=== PATIENT | female | born 1950 | race Caucasian/White ===

== ENCOUNTER 2016-03-03 07:59 | Inpatient (IN) | payer OTHER ==
[~2016-03-03] VITALS: Ht 162.6 cm; Wt 112.9 kg
--- NOTE | ~2016-03-03 | EKG ---
[address] [place] [address] ELECTROCARDIOGRAM REPORT Name: COLLEEN THOMPSON Room #: PRE IN [facility]#: [id number] Admission: Attend Phys: Anatoly Mckeon MD Discharge: Date of : 54 Report #: [id number] THIS REPORT FOR: //name// [facility] Test Date: 2016-04-08 Test Time: 08:33:02 Pat Name: COLLEEN THOMPSON Department: Room: Gender: F Fresh Food Manager: JUWAN MARCIAL : 1950 Requested By: Anatoly Mckeon Order Number: [id number] MD: Elias Schafer Measurements Intervals [place] Rate: 89 P: 44 TX: 164 QRS: 27 QRSD: 96 T: 33 QT: 379 QTc: 462 Interpretive Statements Sinus rhythm Baseline wander in lead(s) III,aVF No previous ECG available for comparison Electronically Signed On 04-08-2016 9:02:49 [employer] REPA[employer] by Elias Schafer [email or web address] <ELECTRONICALLY SIGNED> By: Elias Schafer MD 04/08/16901 832 2 Elias Schafer MD /BERNARDO
--- NOTE | ~2016-03-03 | H ---
[facility] [place] [address] HISTORY AND PHYSICAL Name: COLLEEN THOMPSON Room #: 543-P ADM IN M.R.#: [id number] Admission: 04/21/16 Attend Phys: Anatoly Mckeon MD Discharge: Date of : 54 Report #: [id number] THIS REPORT FOR: //name// For History and Physical, please see office documentation/handwritten note in the patient's medical record. <ELECTRONICALLY SIGNED> By: Anatoly Mckeon MD 04/24/16 0752 1444 Anatoly Mckeon MD /
--- NOTE | ~2016-03-03 | O ---
[facility] [place] [address] OPERATIVE REPORT Name: COLLEEN THOMPSON Room #: 543-P ADM IN M.R.#: [id number] Admission: 04/21/16 Attend Phys: Anatoly Mckeon MD Discharge: Date of : 54 Report #: [id number] THIS REPORT FOR: //name// CC: Anatoly Mckeon Constance Maldonadoer DATE OF SERVICE: 04/21/2016 PREOPERATIVE DIAGNOSIS: End-stage degenerative arthritis, right knee with varus malalignment. POSTOPERATIVE DIAGNOSIS: End-stage degenerative arthritis, right knee with varus malalignment. PROCEDURE: Right total knee arthroplasty. SURGEON: Anatoly Mckeon MD. INDICATIONS: This 65-year-old female, complains of bilateral knee discomfort, worse on the right than the left. X-rays confirm rather significant 3-compartment degenerative arthritis with moderate varus malalignment. We discussed treatment options and elected to go ahead with total knee arthroplasty. DESCRIPTION OF PROCEDURE: The patient was taken to the operating room, where she was placed under general anesthesia. Prophylactic intravenous antibiotics were administered. A femoral nerve block was also applied. The right knee and leg were meticulously prepped and draped. A thigh tourniquet was inflated to 300 mmHg. An anterior longitudinal skin incision was made and carried through the medial retinaculum. The patella was reflected laterally, rather marked degenerative change in all 3 compartments was noted. [employer] knee system was utilized. Intramedullary guides were used on both the femur and the tibia. The femur was cut in 5 degrees of valgus, and the tibia cut perpendicular to long axis of the bone. The patellar surface was resected using a small patellar cutting guide. The femur seemed best suited for a size 3 femoral component. The tibia was also best suited for a size 3 tibial component, although rather minimal bone was resected from both the femur and the tibia, a 12.5 mm polyethylene insert, seemed to fit most nicely. This resulted in satisfactory alignment, range of motion, and stability. Moderate correction in the preoperative varus alignment was accomplished. The patella fit nicely with a size 32 mm patellar button, which was secured with appropriate anchor holes. The patella tracked nicely and appeared to be secure. The trial components were removed. The intramedullary canal was blocked with bone block on both the femoral and tibial sides. The surfaces were thoroughly irrigated and dried. Methyl methacrylate cement was mixed and injected into the porous surface of the tibia. The De[employer] PFC size 3 tibial component was impacted into position in [address] [address] OPERATIVE REPORT Name: COLLEEN THOMPSON Room #: 543-P [facility] IN ..#: [id number] Admission: 04/21/16 Attend Phys: Anatoly Mckeon MD Discharge: Date of : 54 Report #: [id number] appropriate alignment. It seated nicely and appeared to be secure. Excess cement was removed from around its margin. A 12.5 mm polyethylene insert was snapped into place. It also seated nicely and appeared to be secure. A press fit noncemented size 3 right femoral component was impacted on the distal femur. It seated nicely and appeared to be secure. A 32 mm patellar button was cemented into place, using appropriate anchor holes and cement. It was held with a patellar clamp until the cement had hardened. All excess cement was removed from around its margin. Once the components were stable, alignment, range of motion, and stability were once again assessed and felt to be acceptable. She demonstrated full knee extension and satisfactory correction in the preoperative varus malalignment. There was adequate stability with varus and valgus stress. The knee demonstrated flexion beyond 130 degrees. A single Hemovac was left in the wound exiting through a separate stab incision. The fascia was closed with multiple #1 Vicryl sutures. The tourniquet was then deflated after a total tourniquet time of 42 minutes. The subcutaneous tissues were once again irrigated and then closed using 0 Monocryl. The skin was closed with skin abel. A sterile dressing was applied. The patient was awakened and returned to the recovery room in good condition. <ELECTRONICALLY SIGNED> By: Anatoly Mckeon MD 04/22/16 0816 0911 1235 Anatoly Mckeon MD /nt
--- NOTE | ~2016-03-03 | D ---
[facility] [place] [address] [place] [address] DISCHARGE SUMMARY Name: COLLEEN THOMPSON Room #: 543-P [facility] IN M.R.#: [id number] Admission: 04/21/16 Attend Phys: Anatoly Mckeon MD Discharge: 04/25/16 Date of : 54 Report #: [id number] THIS REPORT FOR: //name// CC: Anatoly Julian DATE OF SERVICE: 04/25/2016 DISCHARGE DIAGNOSIS: End-stage degenerative arthritis, right knee. OPERATIVE PROCEDURE: Right total knee arthroplasty. HISTORY OF PRESENT ILLNESS: This 66-year-old female has progressive right knee pain. She has progressive discomfort despite conservative measures. She is using a cane for ambulation and having progressive difficulty. She has elected to go ahead with right total knee arthroplasty. HOSPITAL COURSE: The patient was admitted and taken to the operating room on 04/21/2016. She underwent right total knee arthroplasty, which she tolerated well. Postoperatively, her course was largely unremarkable. She was able to gradually advance with physical therapy and resume regular diet. She was placed on Xarelto for anticoagulation. She made slow progress and was gradually able to advance to stairs and independent ambulation. She was felt to be ready for discharge on 04/25/2016. DISCHARGE MEDICATIONS: Include triamterene/hydrochlorothiazide one tablet daily, Xarelto 10 mg daily, hydrocodone 10/325 one q. 4-6 hours p.r.n. for pain. She will continue with home therapy and we will plan to see her back in my office in about 2 weeks postoperatively. <ELECTRONICALLY SIGNED> By: Anatoly Mckeon MD 05/25/16 1145 0836 0953 Anatoly Mckeon MD /nt
--- NOTE | ~2016-03-03 | HC ---
[facility] [place] [address] [place] [address] CONSULTATION Name: COLLEEN THOMPSON Room #: 543-P [facility] IN M.R.#: [id number] Admission: 04/21/16 Attend Phys: Anatoly Mckeon MD Discharge: 04/25/16 Date of : 54 Report #: [id number] THIS REPORT FOR: //name// CC: Anatoly Julian MD DATE OF SERVICE: 04/21/2016 PRIMARY CARE PHYSICIAN: Constance Julian M.D. CONSULTING PHYSICIAN: Anatoly Mckeon M.D. CHIEF COMPLAINT: Medical management. HISTORY OF PRESENT ILLNESS: The patient is a 65-year-old female with a history of hypertension and degenerative joint disease, who is status post right total knee replacement, needing medical management. She currently denies any chest pain or shortness of breath. She is still very sedated from her anesthesia, but denies any significant postoperative pain. PAST MEDICAL HISTORY: Hypertension, depression, GERD and cataracts. PAST SURGICAL HISTORY: She had a hysterectomy, right total knee arthroplasty as above, laparoscopic cholecystectomy, left bunionectomy, tonsillectomy, colonoscopy, bilateral cataract surgery, right hand surgery and left knee scope. HOME MEDICATIONS: Vitamin D at 1000 units daily, Voltaren 75 mg b.i.d., Nexium 40 mg daily, Mucinex 600 b.i.d., losartan 25 daily, multivitamin daily, Lovaza 1 mg b.i.d., potassium chloride 10 mEq daily, Zoloft 100 daily, antacids p.r.n., triamterene/hydrochlorothiazide 75/50 one daily and Ambien 10 at bedtime p.r.n. FAMILY HISTORY: Reviewed and it is noncontributory. REVIEW OF SYSTEMS: Difficult to obtain as she is very sleepy. SOCIAL HISTORY: She does not smoke or drink. Lives with her locally. PHYSICAL EXAMINATION: VITAL SIGNS: Temperature of 99, pulse 78, blood pressure 146/69 and O2 sats 98% on 2 liters. GENERAL: She is sleepy, but arousable, follows commands and answers questions appropriately. HEENT: Normocephalic, atraumatic. Pupils equal. NECK: Supple. [facility] [address] [place] [address] CONSULTATION Name: COLLEEN THOMPSON Room #: 543-[facility] IN M.R.#: [id number] Admission: 04/21/16 Attend Phys: Anatoly Mckeon MD Discharge: 04/25/16 Date of : 54 Report #: [id number] CARDIOVASCULAR: Regular rate and rhythm. No murmurs. LUNGS: Clear to auscultation bilaterally. No crackles or wheezes. ABDOMEN: Soft. No distention or tenderness. EXTREMITIES: Right knee dressing is clean, dry and intact. NEUROLOGIC: Nonfocal. ASSESSMENT: 1. Status post right total knee arthroplasty. 2. Hypertension. 3. Gastroesophageal reflux disease. 4. Depression. PLAN: 1. Continue postop care per ortho, including pain management and DVT prophylaxis. 2. Resume all home meds with holding parameters. 3. Repeat labs in the morning. 4. DVT prophylaxis per ortho. Thank you for allowing us to participate in this consult. We will follow with you. <ELECTRONICALLY SIGNED> By: Marcy Appiah MD 05/13/162009 1809 2312 Marcy Appiah MD /nt
[~2016-03-03 07:59] MED LIST: AMBIEN 10 MG TA10 MG PO; AMLODIPINE BESYL5 MG; CARBAMAZEPINE400 M1; LOSARTAN POTASS25 MG PO; LOVAZA1000 MG PO; LUMIGAN2.5 M1; MULTIVITAMINS; NEXIUM 40 MG CA40 M1; NORCO 5-325 TA1 EACH PO; POTASSIUM CHLO10 ME1 PO; SERTRALINE HCL100 MG PO; TRIAMTERENE-HC1 EAC3 PO; VITAMIN D 5050000 I1
[2016-04-03] MEDS ORDERED: VITAMIN D1000 UNI1 PO (12:56)
[2016-04-03] MEDS ORDERED: ANTACID325 MG PO (12:58)
[2016-04-03] MEDS ORDERED: DICLOFENAC SODI75 MG PO (12:58)
[2016-04-03] MEDS ORDERED: NEXIUM40 MG PO (12:59)
[2016-04-03] MEDS ORDERED: MUCINEX TA600 MG/TA2 PO (13:30)
[2016-04-08 09:12] LABS: HEMATOCRIT 33.6 % (37.0-47.0); MCH 23.6 pg (26.0-34.0); MCHC 32.8 % (28.0-37.0); MCV 71.9 fL (80.0-100.0); RBC 4.67 mil/uL (4.20-5.00); RDW 15.2 % (10.5-14.5); WBC 9.2 thou/uL (4.0-11.0)
[2016-04-08 09:24] LABS: ALBUMIN 3.6 g/dL (3.4-5.0); CALCIUM 9.6 mg/dL (8.5-10.1); CREATININE 1.7 mg/dL (0.6-1.3); POTASSIUM 3.7 mmol/L (3.5-5.1)
[2016-04-08 09:25] LABS: PROTIME 10.2 Seconds (9.3-11.4)
[2016-04-08 09:31] LABS: URINE BILIRUBIN NEGATIVE (Negative); URINE BLOOD NEGATIVE (Negative); URINE COLOR YELLOW; URINE GLUCOSE-RANDOM* NEGATIVE (Negative); URINE KETONES NEGATIVE (Negative); URINE LEUKOCYTES-REFLEX 1+ (Negative); URINE PROTEIN (DIPSTICK) NEGATIVE (Negative); URINE UROBILINOGEN 0.2 E.U./dl (0.2-1.0)
[2016-04-08 09:49] LABS: CASTS None Seen /LPF (None Seen); SQUAMOUS 0-3 Few /LPF (0-3)
[2016-04-08 09:50] LABS: CRYSTALS None Seen /LPF (None Seen); URINE RBC 0-2 Rare /HPF (0-2); URINE WBC-REFLEX 6-15 Few /HPF (0-5); WBC CLUMPS Few (None Seen)
[2016-04-21] VITALS (10 sets, daily range): BP systolic 98–146; BP diastolic 48–81
[2016-04-22 03:33] VITALS: BP 111/68
[2016-04-22 06:00] LABS: HEMATOCRIT 29.2 % (37.0-47.0); HEMOGLOBIN 9.3 gm/dL (12.0-15.0); MCH 23.3 pg (26.0-34.0); MCHC 31.9 % (28.0-37.0); MCV 73.2 fL (80.0-100.0); RDW 15.6 % (10.5-14.5); WBC 10.3 thou/uL (4.0-11.0)
[2016-04-22 06:42] LABS: CALCIUM 8.8 mg/dL (8.5-10.1); CREATININE 1.3 mg/dL (0.6-1.3); POTASSIUM 3.7 mmol/L (3.5-5.1)
[2016-04-22 07:45] VITALS: BP 122/61
[2016-04-22 15:25] VITALS: BP 131/57
[2016-04-22 20:15] VITALS: BP 118/53
[2016-04-23] VITALS (7 sets, daily range): BP systolic 101–135; BP diastolic 57–64
[2016-04-23 03:49] LABS: HEMATOCRIT 28.5 % (37.0-47.0); MCH 23.7 pg (26.0-34.0); MCHC 31.5 % (28.0-37.0); MCV 75.1 fL (80.0-100.0); RBC 3.79 mil/uL (4.20-5.00); RDW 15.8 % (10.5-14.5); WBC 8.5 thou/uL (4.0-11.0)
[2016-04-24 03:51] LABS: HEMATOCRIT 28.8 % (37.0-47.0); HEMOGLOBIN 8.9 gm/dL (12.0-15.0); MCH 23.4 pg (26.0-34.0); MCV 75.7 fL (80.0-100.0); RBC 3.81 mil/uL (4.20-5.00); RDW 15.6 % (10.5-14.5); WBC 7.7 thou/uL (4.0-11.0)
[2016-04-24 03:59] VITALS: BP 120/61
[2016-04-24 10:33] VITALS: BP 106/62
[2016-04-24 20:27] VITALS: BP 127/57
[2016-04-25 03:34] VITALS: BP 133/69
[2016-04-25 08:47] VITALS: BP 129/78
== END 2016-04-25 13:06 | disposition home health service (06) | DRG 470 ==
LOC: PRE 07:59 → TBA 04-21 05:14 → 5S 04-21 05:14 → PRE 04-21 06:19 → 5S 04-21 12:18 → PRE 04-21 13:26 → 5S 04-25 13:06
PROVIDERS: Family Medicine; Orthopaedic Surgery
PROC: 0SRC0J9 Replacement of Right Knee Joint with Synthetic Substitute, Cemented, Open Approach (ICD-10-PCS; principal; 2016-04-21)
DX: M17.11 Unilateral primary osteoarthritis, right knee (principal); Z68.41 Body mass index [BMI] 40.0-44.9, adult; F32.9 Major depressive disorder, single episode, unspecified; E66.9 Obesity, unspecified; K21.9 Gastro-esophageal reflux disease without esophagitis; I10 Essential (primary) hypertension; M22.41 Chondromalacia patellae, right knee; F41.9 Anxiety disorder, unspecified; Z90.710 Acquired absence of both cervix and uterus; Z98.42 Cataract extraction status, left eye; Z98.41 Cataract extraction status, right eye; Z82.61 Family history of arthritis
CPT/HCPCS: 10785; 50010; 50101; 50415; 50612; 50954; 51130; 51225; 51412; 51771; 53000; 53364; 56525; 62110; 62900; 70005

== ENCOUNTER → 2018-04-13 | Outpatient (CLI) | payer OTHER ==
[~2018-04-13] MED LIST changes: +ANTACID325 MG PO; +DICLOFENAC SODI75 MG PO; +MUCINEX TA600 MG/TA2 PO; +NEXIUM40 MG PO; +VITAMIN D1000 UNI1 PO
== END ==
LOC: MRI 07:24
DX: M51.36 Other intervertebral disc degeneration, lumbar region (principal); M48.061 Spinal stenosis, lumbar region without neurogenic claudication; M43.16 Spondylolisthesis, lumbar region; M51.26 Other intervertebral disc displacement, lumbar region; R20.0 Anesthesia of skin

== ENCOUNTER → 2018-05-04 | Outpatient (CLI) | payer OTHER | LOC: ULTRA 10:00 | DX: I12.9 Hypertensive chronic kidney disease with stage 1 through stage 4 chronic kidney disease, or unspecified chronic kidney disease (principal); N18.3 Chronic kidney disease, stage 3 (moderate) ==

== ENCOUNTER 2018-09-23 05:36 | Inpatient (IN) | payer OTHER ==
[~2018-09-23] VITALS: Ht 162.6 cm; Wt 113.4 kg
[~2018-09-23 05:36] MED LIST changes: +ALLOPURINOL 10100 M1 PO; +KLOR-CON 1010 MEQ PO; +LOSARTAN POTASS50 MG PO; -MULTIVITAMINS; +MULTIVITAMINS PO; +OMEGA-31000 M1 PO; +PROTONIX40 M1 PO; +TRAZODONE HCL50 MG PO; +ULTRAM50 MG PO
[2018-09-23 06:50] VITALS: BP 151/79
[2018-09-23 06:51] LABS: CALCIUM 9.7 mg/dL (8.5-10.1); CREATININE 1.6 mg/dL (0.6-1.0); POTASSIUM 3.5 mmol/L (3.5-5.1)
[2018-09-23 11:00] VITALS: BP 121/79
--- NOTE | 2018-09-23 11:59 | NUR ---
PT ARRIVED ON UNIT ROOM 420 AT 1055 REPORT RECIEVED FROM OR NURSE SHAHZAD. PT ALERT XS4 STATES NO PAIN AT PRESENT NO RESP ISSUES. V.S TAKEN CLEAR LIQUID DIET MENU GIVEN TO PATIENT. AT 1200 PT SLEEPING LYING ON RIGHT SIDE. DRSG TO BACK DRY AND INTACT. AT BEDSIDE SLEEPING TOO.
[2018-09-23 13:50] VITALS: BP 134/77
[2018-09-23 15:31] VITALS: BP 134/76
--- NOTE | 2018-09-23 16:21 | NUR ---
ASSESSMENT-PTLIVES AT HOME WITH HER . PT WALKS ON HER OWN AND DOES HER OWN ADLS. SHE DRIVES. ABLE TO ASSIST AT HOME. PT VOICES NO DC NEEDS AT THIS TIME. FOLLOWING TO ASSIST WITH DC PLANNING.
--- NOTE | 2018-09-23 16:54 | O ---
[facility] [place] [address] [place] [address] OPERATIVE REPORT Name: COLLEEN THOMPSON Room #: 420-P ADM IN M.R.#: [id number] Admission: 09/23/18 ������������������ Attend Phys: Anatoly Mckeon MD Discharge: ������������������ Date of : 54 Report #: [id number] THIS REPORT FOR: //name// CC: Anatoly Borjahanie Eliel DATE OF SERVICE: 09/23/2018 PREOPERATIVE DIAGNOSES: 1. Degenerative lumbar spondylosis with spinal stenosis and radiculopathy at L4-L5 level. 2. Disk herniation at L4-L5 level. POSTOPERATIVE DIAGNOSES: 1. Degenerative lumbar spondylosis with spinal stenosis and radiculopathy at L4-L5 level. 2. Disk herniation at L4-L5 level. PROCEDURE: Decompressive lumbar laminectomy for spinal stenosis at L4-L5 levels and decompressive diskectomy, L4-L5, right. SURGEON: Anatoly Mckeon MD INDICATIONS: This obese 68-year-old female complains of chronic low back pain, but also progressive radiating pain involving the right buttock, hip, thigh and leg. Her clinical and radiographic findings confirmed moderate degenerative spondylosis at multiple levels. This is most severe at L4-L5 where there is a moderate-sized disk bulge toward the right side and also significant central canal stenosis as a result of facet hypertrophy and hypertrophy of the ligamentum, the canal narrows down to about 6 or 7 mm at that level. Given these findings and significant ongoing progressive neurologic symptoms, we have elected to go ahead with surgical decompression. I have explained that she is at risk for some postoperative problems given her very large size and also the moderate multilevel degenerative change which will probably contribute ongoing back pain. DESCRIPTION OF PROCEDURE: The patient was taken to the operating room where she was placed under general anesthesia. Prophylactic intravenous antibiotics were administered. She was turned to the prone position. Low back was meticulously prepped and draped and a C-arm was used to localize the appropriate level. A skin incision made in the midline overlying the L4-L5 interspace. This was carried through abundant adipose tissue and fascia. Muscles were retracted laterally and the spinous process and lamina of L4 and L5 were identified. A laminectomy at both L4 and L5 was performed. The canal was quite narrow at this interval with a good deal of scarring and hypertrophy of the ligamentum. This was carefully dissected and canal was opened nicely. The dura and nerve roots [address] [address] OPERATIVE REPORT Name: COLLEEN Room #: 420-P [facility] IN .R.#: [id number] Admission: 09/23/18 ������������������ Attend Phys: Anatoly Mckeon MD Discharge: ������������������ Date of : 54 Report #: [id number] appeared to be intact without any apparent injury. The dura and nerve root were retracted toward the midline and the right-sided disk herniation was identified. There was no extruded fragment, but the disk was bulging significantly, causing additional crowding on the nerve root. This was opened and a moderate amount of loose degenerative disk debris was removed from the disk space. A C-arm was used to confirm that I was at the appropriate level with a probe left in the disk space at that time, this confirmed that I was at the appropriate L4-L5 level. At this point, there was marked improvement in the caliber of the canal with good resolution of any ongoing stenosis. The disk had been decompressed nicely without significant further impingement on the L5 nerve root. Good hemostasis was confirmed. The canal was gently probed both proximally and distally and there did not seem to be any more significant stenosis above or below the area of decompression. An 80 mg of Depo-Medrol were then left in the epidural space, the exposed dura was covered with a very small sheet of Gelfoam soaked in thrombin. Good hemostasis was confirmed. I did not feel a drain was necessary. The fascia was closed with multiple #1 Vicryl sutures. The abundant adipose tissues were closed with 0 Monocryl. The subcutaneous tissues were also closed with 0 Monocryl. The skin was closed with skin abel. The patient was awakened and returned to recovery room in good condition. ��������������������������������������������� <ELECTRONICALLY SIGNED> ���������������������������������������� By: Anatoly Mckeon MD ��������������������������������������������� 09/23/18 1654 1033 1108 Anatoly Mckeon MD /nt
[2018-09-23 19:35] VITALS: BP 126/50
--- NOTE | 2018-09-24 02:18 | NUR ---
PT WAS OBSERVED SITTING UP IN BED AT START OF SHIFT.ASSESSMENT COMPLETED.PT DENIED PAIN /N/V SO FAR.SCD'S IN PLACE ON BLE.GAUZE AND TAPE STILL INTACT ON HER BACK.PT RESTING IN BED AT THIS TIME.FALL PRECAUTIONS IN PLACE. CALL LIGHT WITHIN REACH.
[2018-09-24 04:02] VITALS: BP 120/64
[2018-09-24 07:55] VITALS: BP 127/66
[2018-09-24 09:46] VITALS: BP 127/66
--- NOTE | 2018-09-24 09:46 | NUR ---
ORDER FOR EVAL AND TREAT. Pt IS DISCHARGING TO HOME THIS AM. SPOKE WITH Pt WHO STATES SHE HAS ALREADY BEEN UP TO THE BATHROOM WITHOUT A WALKER WITHOUT DIFFICULY. NO PAIN DOWN LEG. STATES SHE DOES NOT NEED A FORMAL P.T. EVAL AND FEELS SAFE FOR HOME. WILL DEFER EVAL AT THIS TIME
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
== END 2018-09-24 12:02 | disposition home or self-care (01) | DRG 520 ==
LOC: TBA 05:36 → OR 05:36 → 4E 11:27 → OR 14:07 → ENTRNSPT 09-24 10:46 → EDTRNSPTSTS 09-24 10:48 → 4E 09-24 12:02
PROVIDERS: ADMIT Orthopaedic Surgery
DX: M48.061 Spinal stenosis, lumbar region without neurogenic claudication (principal); M47.896 Other spondylosis, lumbar region; Z88.2 Allergy status to sulfonamides; Z79.899 Other long term (current) drug therapy; M51.16 Intervertebral disc disorders with radiculopathy, lumbar region
CPT/HCPCS: 10783; 50010; 50101; 50402; 50704; 50850; 51412; 56525; 62110; 62900; 70005